=== PATIENT | male | born 1995 | race African-American/Black ===

== ENCOUNTER 2018-07-24 00:59 | Emergency (ER) | payer OTHER ==
[2018-07-24 01:32] VITALS: BMI 20.9
--- NOTE | 2018-07-24 01:50 | PDOC ---
History of Present Illness - General Chief Complaint: Back Pain Stated Complaint: ABD PAIN Time Seen by Provider: 07/24/18 01:12 History Source: Patient Exam Limitations: No Limitations - History of Present Illness Initial Comments: 07/24/18 01:45 Patient is a 23M with no significant medical history here today complaining of back pain that started 1.5 hours ago. He describes it as a gnawing pain worse on the right. He also complains of associated polyuria. The pain wraps around from his pain towards his side, but not into his groin. The pain has improved after the patient took tylenol at home. Denies fevers, chills, nausea, vomiting. Denies testicular pain. He endorses some dysuria that he describes as intermittent and sharp. Denies drug use, admits to drinking last night. Past History - Past Medical History Allergies/Adverse Reactions: Allergies Allergy/AdvReac Type Severity Reaction Status Date / Time No Known Allergies Allergy Verified 07/24/18 01:33 Home Medications: Ambulatory Orders NK [No Known Home Medication] 07/24/18 COPD: No - Suicide/Smoking/Psychosocial Hx Smoking History: Current some day smoker Have you smoked in the past 12 months: Yes Number of Cigarettes Smoked Daily: 1 Information on smoking cessation initiated: No Hx Alcohol Use: No Drug/Substance Use Hx: No Review of Systems - Review of Systems Able to Perform ROS?: Yes Comments:: 07/24/18 02:03 GENERAL/CONSTITUTIONAL: No fever or chills. No weakness. HEAD, EYES, EARS, NOSE AND THROAT: No change in vision. No sore throat. CARDIOVASCULAR: No chest pain or shortness of breath RESPIRATORY: No cough, wheezing, or hemoptysis. GASTROINTESTINAL: No nausea, vomiting, diarrhea or constipation. GENITOURINARY: +dysuria, +frequency. MUSCULOSKELETAL: No joint or muscle swelling or pain. No neck or back pain. SKIN: No rash NEUROLOGIC: No headache, vertigo, loss of consciousness, or change in strength/ sensation. ENDOCRINE: No increased thirst. No abnormal weight change HEMATOLOGIC/LYMPHATIC: No anemia, easy bleeding, or history of blood clots. ALLERGIC/IMMUNOLOGIC: No hives or skin allergy. *Physical Exam - Vital Signs Last Vital Signs Temp Pulse Resp BP Pulse Ox 98.6 F 127 H 18 155/83 100 07/24/18 01:05 07/24/18 01:05 07/24/18 01:05 07/24/18 01:05 07/24/18 01:05 - Physical Exam Comments: 07/24/18 02:04 GENERAL: Awake, alert, and fully oriented, in no acute distress : Two testicles, nontender, no masses, no hernias. HEAD: No signs of trauma, normocephalic, atraumatic EYES: PERRLA, EOMI, sclera anicteric, conjunctiva clear ENT: Auricles normal inspection, hearing grossly normal, nares patent, oropharynx clear without exudates. Moist mucosa NECK: Normal ROM, supple, no lymphadenopathy, JVD, or masses LUNGS: No distress, speaks full sentences, clear to auscultation bilaterally HEART: Tachycardic, normal S1 and S2, no murmurs, rubs or gallops, peripheral pulses normal and equal bilaterally. ABDOMEN: Soft, nontender, normoactive bowel sounds. No guarding, no rebound. No masses EXTREMITIES: Normal inspection, Normal range of motion, no edema. No clubbing or cyanosis. NEUROLOGICAL: Cranial nerves II through XII grossly intact. Normal speech, normal gait, no focal sensorimotor deficits SKIN: Warm, Dry, normal turgor, no rashes or lesions noted. ED Treatment Course - LABORATORY CBC & Chemistry Diagram: 07/24/18 02:52 07/24/18 02:52 Medical Decision Making - Medical Decision Making 07/24/18 02:04 Patient is 23M with no significant medical history here today with back pain and urinary frequency. Back pain has improved. Vitals notable for tachycardia, afebrile. Pain has resolved. DDx includes, but is not limited to: nephrolithiasis, uti, intox. Will do ua, drug screen. Currently not in pain. 07/24/18 05:57 CBC shows leukocytosis. UA shows LE 2+, many RBCs, WBCs Patient's pain returned, CT ordered to evaluate for stone. Suspect oral temp inaccurate and that patient was tachycardic due to fever. My wet read of CT shows no stone, will treat as uti. 07/24/18 06:02 CT [facility] read has no acute pathology. 07/24/18 06:19 Will treat with bactrim as outpatient. Will discharge with return precautions. *DC/Admit/Observation/Transfer Diagnosis at time of Disposition: UTI (urinary tract infection) - Discharge Dispostion Disposition: HOME Condition at time of disposition: Good Decision to Admit order: No - Referrals Referrals: [facility] [place] [Provider Group] - Patient Instructions Printed Discharge Instructions: DI for Urinary Tract Infection (UTI) Additional Instructions: Please follow up with a primary care doctor this week. A referral for a primary care doctor is below. Please return if you have any new, worsening or concerning symptoms, especially increasing pain, fever and vomiting. - Post Discharge Activity Forms/Work/School Notes: Back to Work
--- NOTE | 2018-07-24 01:54 | PDOC ---
Documentation entered by Li Cantu SCRIBE, acting as scribe for Namrata Joseph MD. Namrata Joseph MD: This documentation has been prepared by the bipinibe, Li Cantu SCRIBE, under my direction and personally reviewed by me in its entirety. I confirm that the documentation accurately reflects all work, treatment, procedures, and medical decision making performed by me. Attending Attestation - Resident Resident Name: Jake Glasgow - ED Attending Attestation I have performed the following: I have examined & evaluated the patient, The case was reviewed & discussed with the resident, I agree w/resident's findings & plan, Exceptions are as noted - HPI HPI: 07/24/18 01:42 23 yo male p/w low back pain rt greater than left, increased frequency 07/24/18 01:49 The patient is a 23 year old male with no significant past medical history who presents to the emergency department with flank pain since earlier this evening at 10:30pm. The patient reports that his flank pain is worse in the right than the left side. He states that he took some aspirin prior to arrival which helped alleviate his pain. The patient states that he had some episodes of increased urination about 2 days ago with no dysuria or hematuria. The patient endorses going out for drinks on tuesday, he also endorses smoking hookah then as well. He states that he had one drink this evening at 9 pm. The patient denies any fever, chills, nausea, vomiting, diarrhea, constipation, numbness, weakness, tingling sensations, chest pain, shortness or breath, headache or dizziness. The patient denies any other complaints. - Physicial Exam PE: 07/24/18 01:49 GENERAL: Well-appearing, well-nourished. No apparent distress. HEENT: Normocephalic, atraumatic. PERRL, EOM intact. CARDIOVASCULAR: (+)tachycardic Normal S1, S2. Regular rate PULMONARY: Clear to auscultation bilaterally. ABDOMEN: Soft, non-distended, non-tender. EXTREMITIES: (+)right sided back pain. Normal ROM in all four extremities. No gross deformities. SKIN: Warm, dry. No rash NEUROLOGICAL: No focal neurological deficits. - Medical Decision Making 07/24/18 01:52 diff includes renal calculi,uti,musculoskeletal strain UA pending pt s/o Dr Vee
[2018-07-24] MEDS ORDERED: SODIUM CHLORIDE 0.9% 500 ML INFUS.BAG IV ONE (02:08)
[2018-07-24 03:00] LABS: EPI CELLS 0.1 /HPF (0-5/HPF); URINE APPEARANCE CLEAR; URINE BACTERIA 146.5 /hpf (NEGATIVE); URINE BILIRUBIN NEGATIVE (NEGATIVE); URINE CASTS 5 /lpf (0-8); URINE COLOR YELLOW; URINE GLUCOSE (UA) NEGATIVE (NEGATIVE); URINE KETONE NEGATIVE (NEGATIVE); URINE LEUK ESTERASE 2+ (NEGATIVE); URINE NITRITE NEGATIVE (NEGATIVE); URINE PROTEIN 1+ (NEGATIVE); URINE RBC 403 /hpf (0-4); URINE UROBILINOGEN 0.2 mg/dL (0.2-1.0); URINE WBC 64 /hpf (0-5)
[2018-07-24 03:02] LABS: BASO % 0.3 % (0-2.0); EOS % 0.8 % (0-4.5); HEMOGLOBIN 13.1 GM/dL (11.7-16.9); LYMPH % 11.8 % (8-40); MCH 29.8 pg (25.7-33.7); MCHC 32.7 g/dl (32.0-35.9); MEAN CELL VOLUME 91.1 fl (80-96); MEAN PLT VOLUME 8.4 fl (7.5-11.1); MONO % 8.6 % (3.8-10.2); NEUT % 78.5 % (42.8-82.8); PLATELET COUNT 271 K/MM3 (134-434); RBC 4.39 M/mm3 (4.00-5.60); RDW 13.4 % (11.9-15.9); WHITE BLOOD COUNT 16.1 K/mm3 (4.0-10.0)
[2018-07-24 03:08] LABS: COCAINE, UR NEGATIVE ng/ml (CUTOFF=300); METHADONE, UR NEGATIVE ng/ml (CUTOFF=300); OPIATES, URI NEGATIVE ng/ml (CUTOFF=300); PHENCYCLIDINE,URINE NEGATIVE ng/ml (CUTOFF=25); URINE AMPHETAMINES NEGATIVE ng/ml (CUTOFF=500); URINE BARBITURATES NEGATIVE ng/ml (CUTOFF=200); URINE BENZODIAZEPINES NEGATIVE ng/ml (CUTOFF=200)
[2018-07-24 03:29] LABS: ALBUMIN 3.6 g/dl (3.4-5.0); BILIRUBIN,TOTAL 0.3 mg/dL (0.2-1); CALCIUM 8.8 mg/dL (8.5-10.1); CREATININE 0.7 mg/dL (0.55-1.3); POTASSIUM 3.7 mmol/L (3.5-5.1); TOT PROT 7.7 g/dl (6.4-8.2)
[2018-07-24] MEDS ORDERED: CEFTRIAXONE 1,000 MG in DEXTROSE 5%-WATER - 50 ML IVPB ONE (03:54)
[2018-07-24] MEDS ORDERED: CEFTRIAXONE 1 GM/50 ML BAG ONE (04:04)
--- NOTE | 2018-07-24 04:17 | PDOC ---
*Physical Exam - Vital Signs Last Vital Signs Temp Pulse Resp BP Pulse Ox 98.6 F 127 H 18 155/83 100 07/24/18 01:05 07/24/18 01:05 07/24/18 01:05 07/24/18 01:05 07/24/18 01:05 ED Treatment Course - LABORATORY CBC & Chemistry Diagram: 07/24/18 02:52 07/24/18 02:52 - ADDITIONAL ORDERS Additional order review: Laboratory Results 07/24/18 07/24/18 07/24/18 02:52 02:52 02:50 Sodium 136 Potassium 3.7 Chloride 103 Carbon Dioxide 28 Anion Gap 5 L BUN 11 Creatinine 0.7 Est GFR (CKD-EPI)AfAm 152.02 Est GFR (CKD-EPI)NonAf 131.16 Random Glucose 77 Calcium 8.8 Total Bilirubin 0.3 AST 29 ALT 38 Alkaline Phosphatase 139 H Total Protein 7.7 Albumin 3.6 Urine Color Urine Appearance Urine pH Ur Specific [place] Urine Protein Urine Glucose (UA) Urine Ketones Urine Blood Urine Nitrite Urine Bilirubin Urine Urobilinogen Ur Leukocyte Esterase Urine WBC (Auto) Urine RBC (Auto) Urine Casts (Auto) U Epithel Cells (Auto) Urine Bacteria (Auto) Opiates Screen Negative Methadone Screen Negative Barbiturate Screen Negative Phencyclidine Screen Negative Ur Amphetamines Screen Negative MDMA (Ecstasy) Screen Negative Benzodiazepines Screen Negative Cocaine Screen Negative U Marijuana (THC) Screen Negative Alcohol, Quantitative < 3.0 07/24/18 02:50 Sodium Potassium Chloride Carbon Dioxide Anion Gap BUN Creatinine Est GFR (CKD-EPI)AfAm Est GFR (CKD-EPI)NonAf Random Glucose Calcium Total Bilirubin AST ALT Alkaline Phosphatase Total Protein Albumin Urine Color Yellow Urine Appearance Clear Urine pH 7.0 Ur Specific [place] 1.012 Urine Protein 1+ H Urine Glucose (UA) Negative Urine Ketones Negative Urine Blood 3+ H Urine Nitrite Negative Urine Bilirubin Negative Urine Urobilinogen 0.2 Ur Leukocyte Esterase 2+ H Urine WBC (Auto) 64 Urine RBC (Auto) 403 Urine Casts (Auto) 5 U Epithel Cells (Auto) 0.1 Urine Bacteria (Auto) 146.5 Opiates Screen Methadone Screen Barbiturate Screen Phencyclidine Screen Ur Amphetamines Screen MDMA (Ecstasy) Screen Benzodiazepines Screen Cocaine Screen U Marijuana (THC) Screen Alcohol, Quantitative 07/24/18 02:52 RBC 4.39 MCV 91.1 MCHC 32.7 RDW 13.4 MPV 8.4 Neutrophils % 78.5 Lymphocytes % 11.8 Monocytes % 8.6 Eosinophils % 0.8 Basophils % 0.3 - Medications Given in the ED: ED Medications Discontinued Medications Generic Name Dose Route Start Last Admin Trade Name Melchor PRN Reason Stop Dose Admin Sodium Chloride 1,000 ml 07/24/18 02:08 07/24/18 02:51 Normal Saline - IV 07/24/18 02:09 1,000 ml ONCE ONE Administration Medical Decision Making - Medical Decision Making 07/24/18 04:15 Received pt on signout. Tachy and flank pain. He will have complete workup, as well as hydration. 07/24/18 04:15 Alcohol and utox negative. Pt has UTI and likely pyelonephritis. He will have a CT scan to r/o stones. He will be admitted after scan results return. We will treat with rocephin. 07/24/18 05:31 Pt seems to have cystitis as well as large prostate which contains calcifications. Pt also has a tiny stone in the Right renal pelvis. No sign of hydro and no clear pyelo/perinephric stranding. We are awaiting official read of the CT scan. 07/24/18 06:03 Patient Name: VÍCTOR WHEELER THIS IS A PRELIMINARY REPORT FROM [facility] DATE OF SERVICE: 2018-07-24 05:11:04 IMAGES: [id number] EXAM: CT abdomen and pelvis without contrast HISTORY: Stone COMPARISON: None. FINDINGS: Lung bases are clear. The visualized cardiac chambers are normal size and configuration. Normal liver, gallbladder, pancreas, spleen, adrenal glands and kidneys. The stomach and abdominal small and large bowel are normal. There is no aortic aneurysm. There is no significant retroperitoneal lymphadenopathy. The pelvic small and large bowel are normal. The appendix is normal. The urinary bladder and prostate gland are normal. No pelvic free fluid is identified. There is no significant pelvic lymphadenopathy. IMPRESSION: No localizing signs for acute pathology *DC/Admit/Observation/Transfer Diagnosis at time of Disposition: Pyelonephritis - Discharge Dispostion Condition at time of disposition: Stable - Referrals - Patient Instructions - Post Discharge Activity
[2018-07-24] MEDS ORDERED: SODIUM CHLORIDE 1,000 ML IV STA (06:12)
[2018-07-24 08:54] VITALS: BP 142/72; PULSE 82; TEMP 98.1
== END 2018-07-24 09:00 | disposition home or self-care (01) ==
LOC: JER 00:59
PROC: 3E0337Z Introduction of Electrolytic and Water Balance Substance into Peripheral Vein, Percutaneous Approach (ICD-10-PCS; principal; 2018-07-24)
PROC: 3E03329 Introduction of Other Anti-infective into Peripheral Vein, Percutaneous Approach (ICD-10-PCS; 2018-07-24)
DX: N39.0 Urinary tract infection, site not specified (principal)
CPT/HCPCS: 36415; 74176-TC; 80053; 80307; 81003; 85025; 87086; 87186; 87491; 87591; 99283-25; J7030